=== PATIENT | male | born 1950 | race African-American/Black ===

== ENCOUNTER 2017-07-01 15:20 | Inpatient (IN) | payer MEDICARE ==
[~2017-07-01] VITALS: Ht 170.2 cm; Wt 64.9 kg
[~2017-07-01 15:20] MED LIST: ALBU6.7H INH; ALD50 PO; ASPI-1159 PO; FURO40TA5 PO; GLIP5TAB12 PO
[2017-07-01] MEDS ORDERED: NITROGLYCERIN OINT 1GM/INCH UDPKT TD ONE (18:15)
[2017-07-01] MEDS ORDERED: ASPIRIN 81MG TABLET PO ONE (18:15)
[2017-07-01] MEDS ORDERED: ALBUTEROL (0.083%) 2.5MG/3ML NEB HHN STA (18:36)
[2017-07-01] MEDS ORDERED: FUROSEMIDE 40MG/4ML VIAL IV STA (18:36)
[2017-07-01] MEDS ORDERED: METHYLPREDNISOLONE SOD SUCC 125 MG/2 ML VIAL IV STA (18:36)
[2017-07-01] MEDS ORDERED: IPRATROPIUM BROMIDE (0.02%) 0.5MG/2.5ML NEB HHN STA (18:36)
[2017-07-01] MEDS ORDERED: NITROGLYCERIN OINT 1GM/INCH UDPKT TD STA (18:36)
[2017-07-01 18:42] LABS: HEMATOCRIT. 45.1 % (42.0-52.0); HEMOGLOBIN. 14.9 g/dL (14.0-18.0); MEAN CORPUSCULAR HEMOGLOBIN 30.9 pg (28.0-32.0); MEAN CORPUSCULAR VOLUME 93.6 fL (80.0-94.0); MEAN PLATELET VOLUME 9.4 fl (7.4-10.4); PLATELET 130 x1000/uL (130-400); RED BLOOD CELL COUNT 4.81 mill/uL (4.7-6.1); RED CELL DISTRIBUTION WIDTH 14.8 % (11.6-14.6)
[2017-07-01] MEDS ORDERED: MAGNESIUM 2 G PREMIX 50 ML IV ONE (18:45)
[2017-07-01 18:46] LABS: CHLORIDE 101 mEq/L (98-107)
[2017-07-01 18:47] LABS: INR 1.2
[2017-07-01 18:51] LABS: CARBON DIOXIDE 23 mEq/L (21-32)
[2017-07-01 18:57] LABS: TROPONIN I 0.06 ng/mL (0.00-0.04)
[2017-07-01 18:58] LABS: PLATELET ESTIMATE NORMAL
[2017-07-01] MEDS ORDERED: ACETAMINOPHEN 325MG TABLET PO PRN (23:30)
[2017-07-01] MEDS ORDERED: DIPHENHYDRAMINE 50MG/ML VIAL IV PRN (23:30)
[2017-07-01] MEDS ORDERED: MAGNESIUM/ALUMINUM HYDROXIDE/SIMETHICONE 30ML UDC PO PRN (23:30)
[2017-07-01] MEDS ORDERED: GUAIFENESIN 200MG/10ML SUGAR FREE UDC PO PRN (23:30)
[2017-07-01] MEDS ORDERED: NA PHOS,M-B/NA PHOS,DI-BA ENEMA 118ML PR PRN (23:30)
[2017-07-01] MEDS ORDERED: CLONIDINE 0.1MG TABLET PO PRN (23:30)
[2017-07-01] MEDS ORDERED: ACETAMINOPHEN 650MG SUPP PR PRN (23:30)
[2017-07-01] MEDS ORDERED: DOCUSATE SODIUM 100MG CAPSULE PO PRN (23:30)
[2017-07-01] MEDS ORDERED: ACETAMINOPHEN 650MG/20.3ML UDC GT PRN (23:30)
[2017-07-01] MEDS ORDERED: IPRATROPIUM/ALBUTEROL 0.5-3(2.5)MG/3ML NEB INH PRN (23:30)
[2017-07-02] VITALS (10 sets, daily range): BP systolic 133–167; BP diastolic 53–98
[2017-07-02] MEDS ORDERED: IPRATROPIUM/ALBUTEROL 0.5-3(2.5)MG/3ML NEB INH SCH
[2017-07-02] MEDS: SODIUM CHLORIDE 0.9% INJ 3ML FLUSH IVF SCH ×3 (06:22→22:14)
[2017-07-02 07:13] LABS: HEMATOCRIT. 43.9 % (42.0-52.0); HEMOGLOBIN. 14.6 g/dL (14.0-18.0); MEAN CORPUSCULAR HEMOGLOBIN 30.8 pg (28.0-32.0); MEAN PLATELET VOLUME 9.5 fl (7.4-10.4); RED BLOOD CELL COUNT 4.73 mill/uL (4.7-6.1); RED CELL DISTRIBUTION WIDTH 15.2 % (11.6-14.6)
[2017-07-02 07:35] LABS: CARBON DIOXIDE 21 mEq/L (21-32); CHLORIDE 99 mEq/L (98-107)
[2017-07-02 07:42] LABS: CREATINE KINASE 235 IU/L (39-308); HDL CHOLESTEROL 63 mg/dL (40-59); LDL CHOLESTEROL 56 mg/dL (5-100); TROPONIN I 0.04 ng/mL (0.00-0.04)
[2017-07-02 08:41] LABS: T4 FREE 1.37 ng/dL (0.76-1.46)
[2017-07-02 08:47] LABS: PLATELET 125 x1000/uL (130-400); PLATELET ESTIMATE SLIGHTLY DECREASED
[2017-07-02] MEDS ORDERED: FUROSEMIDE 40MG/4ML VIAL IVP SCH (09:00)
[2017-07-02] MEDS: ENOXAPARIN 40MG/0.4ML SYR SUBCUT SCH (09:45)
[2017-07-02] MEDS: PREDNISONE 20MG TABLET PO SCH (14:52)
[2017-07-02] MEDS: ONDANSETRON HCL 4MG/2ML VIAL IV PRN ×2 (14:54→22:19)
[2017-07-02 18:36] LABS: CREATINE KINASE MB FRACTION 3.4 ng/mL (0.5-3.6); TROPONIN I 0.04 ng/mL (0.00-0.04)
[2017-07-02 20:33] LABS: T4 FREE 1.18 ng/dL (0.76-1.46)
[2017-07-03] VITALS (7 sets, daily range): BP systolic 107–134; BP diastolic 57–91
[2017-07-03 02:55] LABS: CREATINE KINASE MB FRACTION 3.1 ng/mL (0.5-3.6); TROPONIN I 0.04 ng/mL (0.00-0.04)
[2017-07-03 07:19] LABS: CREATINE KINASE MB FRACTION 2.8 ng/mL (0.5-3.6); TROPONIN I 0.04 ng/mL (0.00-0.04)
[2017-07-03] MEDS: SODIUM CHLORIDE 0.9% INJ 3ML FLUSH IVF SCH ×3 (07:35→21:46)
[2017-07-03] MEDS: FUROSEMIDE 40MG/4ML VIAL IVP SCH ×2 (07:35→16:47)
[2017-07-03] MEDS: LOSARTAN POTASSIUM 25 MG TABLET PO SCH (08:24)
[2017-07-03] MEDS: PREDNISONE 20MG TABLET PO SCH (08:24)
[2017-07-03] MEDS: ENOXAPARIN 40MG/0.4ML SYR SUBCUT SCH (08:24)
[2017-07-03] MEDS: ONDANSETRON HCL 4MG/2ML VIAL IV PRN (08:26)
[2017-07-03 10:53] LABS: CLARITY URINE CLEAR (CLEAR); COLOR URINE YELLOW (YELLOW); GLUCOSE URINE TRACE (NEGATIVE); KETONES URINE NEGATIVE (NEGATIVE); LEUKOCYTE ESTERASE URINE NEGATIVE (NEGATIVE); NITRITE URINE NEGATIVE (NEGATIVE); OCCULT BLOOD URINE NEGATIVE (NEGATIVE); PROTEIN URINE 2+ (NEGATIVE); SPECIFIC GRAVITY URINE 1.021 (1.005-1.030)
[2017-07-03 11:37] LABS: *AMPHETAMINES SCREEN URINE NEGATIVE (NEGATIVE); *BARBITURATES SCREEN URINE NEGATIVE (NEGATIVE); *BENZODIAZEPINES SCREEN URINE NEGATIVE (NEGATIVE); *COCAINE SCREEN URINE PRESUMTIVE POSITIVE (NEGATIVE); CANNABINOID URINE SCREEN PRESUMTIVE POSITIVE (NEGATIVE); METHADONE URINE SCREEN NEGATIVE (NEGATIVE); OPIATES URINE SCREEN NEGATIVE (NEGATIVE); PHENCYCLIDINE URINE SCREEN NEGATIVE (NEGATIVE)
[2017-07-03] MEDS: HYDROCODONE/APAP 7.5/325MG 1 TAB TABLET PO PRN ×2 (17:13→23:16)
[2017-07-03 18:06] LABS: TROPONIN I 0.04 ng/mL (0.00-0.04)
[2017-07-03 20:27] LABS: HEMATOCRIT. 44.9 % (42.0-52.0); MEAN CORPUSCULAR HEMOGLOBIN 31.1 pg (28.0-32.0); MEAN CORPUSCULAR VOLUME 93.3 fL (80.0-94.0); PLATELET 133 x1000/uL (130-400); RED BLOOD CELL COUNT 4.81 mill/uL (4.7-6.1); RED CELL DISTRIBUTION WIDTH 14.8 % (11.6-14.6)
[2017-07-03] MEDS: BUDESONIDE 0.5MG/2ML NEB HHN SCH (22:01)
[2017-07-03] MEDS: IPRATROPIUM/ALBUTEROL 0.5-3(2.5)MG/3ML NEB INH SCH (22:01)
[2017-07-03 22:12] LABS: ATYPICAL LYMPHOCYTES 2; PLATELET ESTIMATE NORMAL
[2017-07-04] VITALS: BP 155/81
[2017-07-04] MEDS: IPRATROPIUM/ALBUTEROL 0.5-3(2.5)MG/3ML NEB INH SCH ×6 (01:50→20:33)
[2017-07-04 04:00] VITALS: BP 141/86
[2017-07-04] MEDS: SODIUM CHLORIDE 0.9% INJ 3ML FLUSH IVF SCH ×3 (06:44→21:01)
[2017-07-04] MEDS: FUROSEMIDE 40MG/4ML VIAL IVP SCH (06:44)
[2017-07-04 08:00] VITALS: BP 138/78
[2017-07-04] MEDS: LOSARTAN POTASSIUM 25 MG TABLET PO SCH (08:28)
[2017-07-04] MEDS: ENOXAPARIN 40MG/0.4ML SYR SUBCUT SCH (08:28)
[2017-07-04] MEDS: BUDESONIDE 0.5MG/2ML NEB HHN SCH ×2 (09:15→20:34)
[2017-07-04 12:00] VITALS: BP 120/73
[2017-07-04] MEDS: HYDROCODONE/APAP 7.5/325MG 1 TAB TABLET PO PRN ×2 (12:14→21:01)
[2017-07-04 16:00] VITALS: BP 125/80
[2017-07-04 20:00] VITALS: BP 125/75
[2017-07-05] VITALS: BP 139/90
[2017-07-05] MEDS: IPRATROPIUM/ALBUTEROL 0.5-3(2.5)MG/3ML NEB INH SCH ×4 (01:05→16:39)
[2017-07-05 04:00] VITALS: BP 131/95
[2017-07-05] MEDS: SODIUM CHLORIDE 0.9% INJ 3ML FLUSH IVF SCH ×2 (06:58→13:04)
[2017-07-05 08:00] VITALS: BP 145/88
[2017-07-05] MEDS: LOSARTAN POTASSIUM 25 MG TABLET PO SCH (08:16)
[2017-07-05] MEDS: FUROSEMIDE 40MG/4ML VIAL IVP SCH (08:16)
[2017-07-05] MEDS: ENOXAPARIN 40MG/0.4ML SYR SUBCUT SCH (08:17)
[2017-07-05] MEDS: BUDESONIDE 0.5MG/2ML NEB HHN SCH (08:42)
[2017-07-05 12:00] VITALS: BP 127/82
[2017-07-05] MEDS: HYDROCODONE/APAP 7.5/325MG 1 TAB TABLET PO PRN (12:03)
[2017-07-05 15:19] VITALS: BP 124/82
[2017-07-05 16:00] VITALS: BP 124/80
== END 2017-07-05 18:05 | disposition home or self-care (01) | DRG 291 ==
LOC: ER 15:51 → 5WST 19:41 → EDBEDREQ 19:49 → ENRESERV 20:43
PROVIDERS: ADMIT Family Medicine; ATTEND Family Medicine
DX: I50.23 Acute on chronic systolic (congestive) heart failure (principal); J96.00 Acute respiratory failure, unspecified whether with hypoxia or hypercapnia; I42.8 Other cardiomyopathies; E11.9 Type 2 diabetes mellitus without complications; D72.819 Decreased white blood cell count, unspecified; E87.70 Fluid overload, unspecified; J44.1 Chronic obstructive pulmonary disease with (acute) exacerbation; I11.0 Hypertensive heart disease with heart failure; F12.90 Cannabis use, unspecified, uncomplicated; F14.90 Cocaine use, unspecified, uncomplicated; F17.210 Nicotine dependence, cigarettes, uncomplicated; Z59.0 Homelessness
CPT/HCPCS: 36415; 71010; 80053; 80061; 80305; 81001; 82550; 82553; 82962; 83036; 83880; 84439; 84443; 84484; 85007; 85025; 85027; 85379; 85610; 87040; 87077; 87086; 87186; 93005; 93306; 94640; 94644; 94664; 96374; 96375; 99285; J1650; J1940; J2405; J2930; J3475; J7512; J7611; J7620; J7626